=== PATIENT | female | born 1990 | race Caucasian/White ===

== ENCOUNTER 2018-12-11 21:44 | Emergency (ER) | payer SELFPAY ==
[~2018-12-11] VITALS: Ht 170.2 cm; Wt 61.2 kg
--- NOTE | 2018-12-11 22:18 | NUR ---
AT BEDSIDE FOR HX AND PHYSICAL PT ABLE TO TOLERATE B/L I&D OF MULTIPLE CYSTS
[2018-12-11] MEDS ORDERED: LIDOCAINE 1%-EPI 1:100,000 20 ML VIAL TP ONE (22:30)
[2018-12-11] MEDS ORDERED: NEOMY/BACITRA/POLYMYXIN B OINT UD PACKET TP ONE ×2 (22:49→23:00)
--- NOTE | 2018-12-11 23:00 | NUR ---
APPROX [phone] ROUND ABRASION ON CHEST OF NOTE: STERNAL RUB DONE ON HER 1HR BENEFITS SPECIALIST RECRUITER CLEANED SITE WITH BETADINE, TRIPLE ABX OINTMENT APPLIED COVERED WITH NON ADHERENT DRESSING AND GAUZE 4X4, TAPED ON ALL 4SIDES SMALL BANDAIDS APPLIED TO B/L AXILLA (1- LEFT AXILLA, 2 RIGHT AXILLA) ALL PACKED WITH IODOFORM STRIPS BY ERMD ASEPSIS OBSERVED Patient discharged to home in stable conditon. Written and verbal after care instructions given. Patient verbalizes understanding of instructions. AMBULATORY WITH STABLE GAIT ALL BELONGINGS WITH PT
[2018-12-11 23:17] VITALS: BP 128/62
== END 2018-12-11 23:05 | disposition home or self-care (01) ==
LOC: ER 21:44
DX: S20.319D Abrasion of unspecified front wall of thorax, subsequent encounter (principal); L72.0 Epidermal cyst; L08.9 Local infection of the skin and subcutaneous tissue, unspecified; R22.33 Localized swelling, mass and lump, upper limb, bilateral; J45.909 Unspecified asthma, uncomplicated; F31.9 Bipolar disorder, unspecified; F41.9 Anxiety disorder, unspecified; F17.200 Nicotine dependence, unspecified, uncomplicated; F11.10 Opioid abuse, uncomplicated; F12.10 Cannabis abuse, uncomplicated; F15.10 Other stimulant abuse, uncomplicated; Z88.2 Allergy status to sulfonamides; Z88.8 Allergy status to other drugs, medicaments and biological substances; X58.XXXD Exposure to other specified factors, subsequent encounter
CPT/HCPCS: 10061; 99284; J3490; A4663